=== PATIENT | female | born 1975 | race Caucasian/White ===

== ENCOUNTER 2023-12-13 08:30 | Outpatient (RCR) | payer MEDICAID, SELFPAY ==
[2023-11-18 13:25] VITALS: BP 193/101; PULSE 70; RESP 18; TEMP 36.6
--- NOTE | 2023-11-18 15:22 | HP.PCM_ITS ---
History of Present Illness Date of Service: 11/18/23 Chief Complaint: Lower extremity edema, lipodermatosclerosis History of Wound: Gibran Ronquillo is a very pleasant 48 y/o female who presents today for evaluation and management of lower extremity edema and chronic skin changes as referred from [facility]. She has had lower extremity edema for many years, worse in the RLE than the LLE. She does have Factor V Leiden for which she is chronically anticoagulated with Xarelto 20mg daily. Associated with this, she has had multiple prior DVTs. She has chronic aching pain/fatigue and persistent edema in her lower extremities. She has tried compression in the past but has had difficulty tolerating it. She does not have any wounds. She does have some chronic discoloration and skin hardening in the distal calf on the RLE. She is also obese with a BMI 61.3. She reports that she has been trying for a long time to lose weight through various methods with limited success to this point. She expresses frustration at this, which is understandable. She has unfortunately had bad experiences in the past in healthcare settings secondary to her weight and is typically very nervous in these settings as a result contributing to very elevated pressure today. She is asymptomatic in this regard otherwise. No other significant medical history. [facility] Home Medications rivaroxaban 20 mg tablet (Xarelto) 20 mg PO DAILY 11/18/23 [History Last Taken 11/18/23] Allergy/AdvReac Type Severity Reaction Status Date / Time amoxicillin Allergy Mild Rash Verified 11/18/23 14:48 Vital Signs Vital Signs Vital Signs: 11/18/23 13:25 Temperature 98 F Temperature Source Temporal Pulse Rate 70 Respiratory Rate 18 Blood Pressure 193/101 H Blood Pressure Mean 131 Blood Pressure Source Manual Blood Pressure Position Sitting Blood Pressure Location Right Arm Oxygen Delivery Method Room Air Physical Exam Const alert, oriented x3, no apparent distress and healthy appearing General Appearance: cooperative and comfortable Exam Limitations: no limitations HEENT normocephalic, head/scalp atraumatic, hearing grossly normal bilaterally, external ears normal and external nose normal Eyes EOMs intact bilaterally General Eye: normal appearance of both eyes Neck General: normal visual inspection and trachea midline Resp normal respiratory effort, normal air movement, no retractions and no use of accessory muscles Effort and Inspection: able to speak in complete sentences; Negative for labored, stridor or audible wheezes Cardio regular rate and regular rhythm Extremity Extremity Narrative: BLE worse R than L. There is lipodermatosclerosis noted at the R distal calf/ankle. Skin no wounds Neuro CN's II-XII intact bilaterally, moves all extremities, no focal motor deficits, no sensory deficits noted and gait normal Psych mental status grossly normal Appearance: grossly normal Attitude: calm and engaged Activity / Motor Behavior: appropriate eye contact Speech: normal speech Mood & Affect: euthymic mood Judgement: judgement good Debridement Note Debridement Note No debridement was completed: No debridement was completed today Post-Debridement Measurements and Additional Note: Post-Debridement Measurements/Treatment - Nurse 1 - General Ulcer Assessment Start: 11/18/23 13:10 Freq: Status: Active Protocol: MINA Activity Type Activity Date Activity User E-sign Co-sign Detail Recorded Client Recorded Date Recorded By Document 11/18/23 13:25 MS [place] 11/18/23 13:33 MS 11/18/23 13:25 - Today's Visit Information Type of service Initial Visit Arrival Mode Ambulatory Patient Identification Verified (Name & Yes ) Safety Precautions Fall Prevention Vital Signs Temperature (97.8 F-99.1 F) 98 F Temperature Source Temporal Pulse Rate (60-100) 70 Pulse Location Monitor Respiratory Rate (12-18) 18 Respiratory rate source Observation Oxygen Delivery Method Room Air Blood Pressure (90/60-120/80) 193/101 H Blood Pressure Mean 131 Source Manual Position Sitting Blood Pressure Location Right Arm History Since Last Visit- (Skip if this is Patient's initial visit) Has compression in place as prescribed N/A Has offloadiing in place as prescribed N/A Left Footwear Regular Shoe Right Footwear Regular Shoe Pain Scale: 0-10 Numeric Is Patient Pain Free? Yes - Nurse 1 - General Ulcer Measurement Start: 11/18/23 13:10 Freq: Status: Active Protocol: Activity Type Activity Date Activity User E-sign Co-sign Detail Recorded Client Recorded Date Recorded By Document 11/18/23 13:25 MS [place] 11/18/23 13:33 MS 11/18/23 13:25 Wound Center Nurse 1 #1 Right Lower Leg -Current Size (cm) - Length 0.1 -Current Size (cm) - Width 0.1 -Current Size (cm) - Depth 0.1 -Total Square Cm 0.01 -Date of Last Picture (Recall this 11/18/23 field) -Photo Taken Yes -Texture (Nina-wound Skin Appearance) Assessed -Moisture (Nina-wound Skin Appearance) Assessed -Color (Nina-wound Skin Appearance) Assessed, Hemosiderin Staining -Temperature (Nina-wound Skin No Abnormality Appearance) (Pt Warm) -Tenderness on Palpation (Nina-wound No Skin Appearance) Right Calf (cm) 64 Right Ankle (cm) 42 - Nurse 2 - General Ulcer CM Notes Start: 11/18/23 13:10 Freq: Status: Active Protocol: Activity Type Activity Date Activity User E-sign Co-sign Detail Recorded Client Recorded Date Recorded By Document 11/18/23 13:45 Desktop 11/18/23 14:11 11/18/23 13:45 Wound Center Nurse 2 #1 Right Lower Leg -Time 13:46 -Correct Patient Yes -Correct Side, Site, Position Yes -Wound Comment(s) no wounds but edema bilaterally Pain Scale: 0-10 Numeric Is Patient Pain Free? Yes - Nurse 3 - General Ulcer D/C NN Start: 11/18/23 13:10 Freq: Status: Active Protocol: Activity Type Activity Date Activity User E-sign Co-sign Detail Recorded Client Recorded Date Recorded By Document 11/18/23 14:24 MS Desktop 11/18/23 14:45 MS 11/18/23 14:24 Wound Care Center Nurse 3 Right -Multi-Layered Wrap Application Multi-Layer Comp - Right ($ ) Left -Multi-Layered Wrap Application Multi-Layer Comp - Left ($) Pain Scale: 0-10 Numeric Is Patient Pain Free? Yes - Visit Discharge Discharge Condition Stable Ambulatory Status Ambulatory Transportation Private Auto Medication Reconcilliation completed & No provided to patient/care provider Clinical Summary of Care Provided Yes Notes: right leg measurements 41, 63.5-calf, 31.5-ankle left measurements 41 61-calf 31 ankle Charges/Coding Visit Charges Office Visits / Consults: 97573 OV L4 Est 30min Assessment/Plan Assessment/Plan (1) Bilateral lower extremity edema: CODE(S): R60.0 - Localized edema (2) Lipodermatosclerosis: CODE(S): M79.3 - Panniculitis, unspecified (3) Factor V Leiden: CODE(S): D68.51 - Activated protein C resistance (4) History of DVT (deep vein thrombosis): CODE(S): Z86.718 - Personal history of other venous thrombosis and embolism PLAN: Plan Will plan to initiate consistent measured compression with 3M wraps this week as long as she is able to tolerate this with the goal of reducing edema as much as possible such that compression can be continued with compression stockings long- term. Additionally, we discussed other conservative measures to initiate including leg elevation at all times of rest, regular walking regimen and ankle flexion exercises throughout the day (especially during times of prolonged idle sitting/standing), avoidance of prolonged idle sitting and standing. Certainly want to further evaluate for potential component of chronic venous insufficiency, post-thrombotic syndrome, and/or central venous compression. Will obtain a venous reflux study. For best long-term management, she may benefit from pneumatic leg pumps. Will monitor progress with conservative measures as above. We did discuss how her weight may contribute to lower extremity edema and she is very aware and understanding of this. She does continue to work toward weight loss, but this has been a challenging process through which she has tried many different things. She is interested in pursuing a referral to a weight loss center such as through [facility] which can offer medical and nutrition support among other options. Will place a referral if needed. She will return in 1 week or sooner as needed.
--- NOTE | 2023-11-22 13:01 | VDLE_ITS ---
Reason For Study: BLE Wounds RIGHT LEFT CFV is compressible, spontaneous, phasic, CFV is compressible, spontaneous, phasic, competent and demonstrates normal competent, and demonstrates normal augmentation. augmentation. FV is compressible, spontaneous, phasic, FV is compressible, spontaneous, phasic, competent and demonstrates normal competent and demonstrates normal augmentation. augmentation. POP V is compressible, phasic, and POP V is compressible, spontaneous, phasic, INCOMPETENT for greater than 1.0 second. competent and demonstrates normal T/P Trunk is compressible. augmentation. PTV is compressible. T/P Trunk is compressible. RT PerV is compressible. PTV is compressible. SFJ is INCOMPETENT and measures 0.66 cm. LT PerV is compressible. GSV proximal thigh measures 0.71 x 0.72 cm. SFJ is INCOMPETENT and measures 0.79 cm. GSV at knee measures 0.82 x 0.70 cm. GSV proximal thigh measures 0.70 x 0.65 cm. GSV above knee is competent. GSV at knee measures 0.63 x 0.58 cm. GSV below knee is INCOMPETENT for greater GSV INCOMPETENT throughout for greater than than 0.5 seconds. 0.5 seconds. SSV proximal calf is INCOMPETENT for greater ASV mid calf is INCOMPETENT for greater than than 0.5 seconds and measures 0.41 x 0.42 cm. 0.5 seconds and measures 0.37 x 0.46 cm. Procedure SSV proximal calf is competent and measures Exam performed in department. 0.35 x 0.36 cm. This is a venous duplex using B-mode, color flow and spectral Doppler. The exam was diagnostic. The study was technically difficult. Patient was scanned in reverse Trendelenburg position during reflux assessment. VL/Venous Duplex US - Js Extrem Interpretation Summary Deep veins of the bilateral lower extremities are patent and compressible segme ntally. There is no evidence of bilateral lower extremity deep vein thrombosis. The bilateral great saphenous veins appear patent and compressible segmentally. Positive for reflux in the right popliteal vein, saphenofemoral junction, great saphenous vein below the knee, small saphenous vein. Positive for reflux in the left saphenofemoral junction, great saphenous vein t hroughout, accessory saphenous vein in calf. Ordering Physician: Katia Mcqueen Referring Physician: Katherine Carmona Performed By: Moses Goode RVT
[2023-11-22 14:04] VITALS: BP 187/107; PULSE 62; RESP 18; TEMP 35.9
[2023-11-25 13:22] VITALS: BP 192/75; PULSE 59; RESP 18; TEMP 35.8
--- NOTE | 2023-11-25 17:06 | PN.PCM_ITS ---
History of Present Illness Date of Service: 11/25/23 Chief Complaint: Lower extremity edema, lipodermatosclerosis History of Wound: Gibran Ronquillo is a very pleasant 48 y/o female who presents today for evaluation and management of lower extremity edema and chronic skin changes as referred from [facility]. She has had lower extremity edema for many years, worse in the RLE than the LLE. She does have Factor V Leiden for which she is chronically anticoagulated with Xarelto 20mg daily. Associated with this, she has had multiple prior DVTs. She has chronic aching pain/fatigue and persistent edema in her lower extremities. She has tried compression in the past but has had difficulty tolerating it. She does not have any wounds. She does have some chronic discoloration and skin hardening in the distal calf on the RLE. She is also obese with a BMI 61.3. She reports that she has been trying for a long time to lose weight through various methods with limited success to this point. She expresses frustration at this, which is understandable. She has unfortunately had bad experiences in the past in healthcare settings secondary to her weight and is typically very nervous in these settings as a result contributing to very elevated pressure today. She is asymptomatic in this regard otherwise. No other significant medical history. Subjective Subjective She did well with the compression wraps this week. She did notice that they started to bunch around the ankles towards the end. Edema is overall stable from last week. She did complete venous reflux study as ordered. No new concerns. Objective Data Objective Data Vital Signs: Vital Signs Temp Pulse Resp BP O2 Del Method 96.4 F L 59 L 18 192/75 H Room Air 11/25/23 13:22 11/25/23 13:22 11/25/23 13:22 11/25/23 13:22 11/25/23 13:22 Oxygen Delivery Method Room Air Charges/Coding Visit Charges Office Visits / Consults: [id number] OV L3 Est 20min Physical Exam Const alert, oriented x3, no apparent distress and healthy appearing General Appearance: cooperative and comfortable Exam Limitations: no limitations HEENT normocephalic, head/scalp atraumatic, hearing grossly normal bilaterally, external ears normal and external nose normal Eyes EOMs intact bilaterally General Eye: normal appearance of both eyes Neck General: normal visual inspection and trachea midline Resp normal respiratory effort, normal air movement, no retractions and no use of accessory muscles Effort and Inspection: able to speak in complete sentences; Negative for labored, stridor or audible wheezes Cardio regular rate and regular rhythm Extremity Extremity Narrative: BLE worse R than L. There is lipodermatosclerosis noted at the R distal calf/ankle. Skin no wounds Neuro CN's II-XII intact bilaterally, moves all extremities, no focal motor deficits, no sensory deficits noted and gait normal Psych mental status grossly normal Appearance: grossly normal Attitude: calm and engaged Activity / Motor Behavior: appropriate eye contact Speech: normal speech Mood & Affect: euthymic mood Judgement: judgement good Debridement Note Debridement Note No debridement was completed: No debridement was completed today Post-Debridement Measurements and Additional Note: Post-Debridement Measurements/Treatment - Nurse 1 - General Ulcer Assessment Start: 11/18/23 13:10 Freq: Status: Active Protocol: [email or web address] Activity Type Activity Date Activity User E-sign Co-sign Detail Recorded Client Recorded Date Recorded By Document 11/18/23 13:25 MT Desktop 11/18/23 13:33 MT Document 11/22/23 14:04 KW Desktop 11/22/23 14:08 KW Document 11/25/23 13:22 KW Desktop 11/25/23 13:27 KW 11/18/23 11/22/23 11/25/23 13:25 14:04 13:22 - Today's Visit Information Type of service Initial Visit Nurse-only Follow-up Visit Visit (Physician/TELEPHONIC NURSE CASE MANAGER ) Arrival Mode Ambulatory Ambulatory Patient Identification Verified (Name & Yes Yes Yes ) Safety Precautions Fall Prevention Vital Signs Temperature (97.8 F-99.1 F) 98 F 96.7 F L 96.4 F L Temperature Source Temporal Temporal Temporal Pulse Rate (60-100) 70 62 59 L Pulse Location Monitor Monitor Respiratory Rate (12-18) 18 18 18 Respiratory rate source Observation Observation Observation Oxygen Delivery Method Room Air Room Air Room Air Blood Pressure (90/60-120/80) 193/101 H 187/107 H 192/75 H Blood Pressure Mean (mm Hg) 131 133 114 Source Manual Monitor Monitor Position Sitting Semi-Fowlers Semi-Fowlers Blood Pressure Location Right Arm Left Arm Left Forearm History Since Last Visit- (Skip if this is Patient's initial visit) Have you changed medications since your No No last visit? Any new allergies or adverse reactions No No Had a fall/change in ADL's that may No No increase risk of falls Signs or symptoms of abuse and/or No No neglect since last visit Have you been in the hospital since your No No last visit? Has dressing in place as prescribed Yes Yes Has compression in place as prescribed N/A Yes Yes Has offloadiing in place as prescribed N/A N/A N/A Experienced any changes in pain level or No No management Left Footwear Regular Shoe Regular Shoe Regular Shoe Right Footwear Regular Shoe Regular Shoe Regular Shoe Pain Scale: 0-10 Numeric Is Patient Pain Free? Yes No Yes WC - Nurse 1 - General Ulcer Measurement Start: 11/18/23 13:10 Freq: Status: Active Protocol: Activity Type Activity Date Activity User E-sign Co-sign Detail Recorded Client Recorded Date Recorded By Document 11/18/23 13:25 MT Desktop 11/18/23 13:33 MT Document 11/22/23 14:04 KW Desktop 11/22/23 14:08 KW Document 11/25/23 13:22 KW Desktop 11/25/23 13:27 KW 11/18/23 11/22/23 11/25/23 13:25 14:04 13:22 Wound Center Nurse 1 #1 Right Lower Leg -Current Size (cm) - Length 0.1 -Current Size (cm) - Width 0.1 -Current Size (cm) - Depth 0.1 -Total Square Cm 0.01 -Date of Last Picture (Recall this 11/18/23 field) -Photo Taken Yes -Texture (Nina-wound Skin Appearance) Assessed -Moisture (Nina-wound Skin Appearance) Assessed -Color (Nina-wound Skin Appearance) Assessed, Hemosiderin Staining -Temperature (Nina-wound Skin No Abnormality Appearance) (Pt Warm) -Tenderness on Palpation (Nina-wound No Skin Appearance) Right Calf (cm) 64 61.5 69 Right Ankle (cm) 42 33.5 39 Point of Measurement (cm from the distal 59 point) Left Calf (cm) 59.5 Point of measurement (cm from the medial 37 instep) Left Ankle (cm) 32 WC - Nurse 2 - General Ulcer CM Notes Start: 11/18/23 13:10 Freq: Status: Active Protocol: Activity Type Activity Date Activity User E-sign Co-sign Detail Recorded Client Recorded Date Recorded By Document 11/18/23 13:45 GM Desktop 11/18/23 14:11 GM Document 11/25/23 13:37 GM Desktop 11/25/23 13:37 11/18/23 11/25/23 13:45 13:37 Wound Center Nurse 2 #1 Right Lower Leg -Time 13:46 -Correct Patient Yes -Correct Side, Site, Position Yes -Wound Comment(s) no wounds but edema bilaterally Pain Scale: 0-10 Numeric Is Patient Pain Free? Yes Yes WC - Nurse 3 - General Ulcer D/C NN Start: 11/18/23 13:10 Freq: Status: Active Protocol: Activity Type Activity Date Activity User E-sign Co-sign Detail Recorded Client Recorded Date Recorded By Document 11/18/23 14:24 MT Desktop 11/18/23 14:45 MT Document 11/22/23 14:08 KW Desktop 11/22/23 14:09 KW Document 11/25/23 14:21 BMF Desktop 11/25/23 14:22 BMF 11/18/23 11/22/23 11/25/23 14:24 14:08 14:21 Wound Care Center Nurse 3 #1 Right Lower Leg -Ulcer Cleansing Soap and Water BLE -Multi-Layered Wrap Application Multi-Layer Multi-Layer Comp - Bilat ($ Comp - Bilat ($ ) ) -Other applied per dl quality assurance supervisor trim Right -Multi-Layered Wrap Application Multi-Layer Comp - Right ($ ) Left -Multi-Layered Wrap Application Multi-Layer Comp - Left ($) Treatment Response Procedure Tolerated Well Pain Scale: 0-10 Numeric Is Patient Pain Free? Yes Yes Yes WC - Visit Discharge Discharge Condition Stable Stable Stable Ambulatory Status Ambulatory Ambulatory Ambulatory Transportation Private Auto Private Auto Private Auto Medication Reconcilliation completed & No No provided to patient/care provider Clinical Summary of Care Provided Yes Yes Notes: right leg measurements 41, 63.5-calf, 31.5-ankle left measurements 41 61-calf 31 ankle Assessment/Plan Assessment/Plan (1) Bilateral lower extremity edema: CODE(S): R60.0 - Localized edema (2) Lipodermatosclerosis: CODE(S): M79.3 - Panniculitis, unspecified (3) Factor V Leiden: CODE(S): D68.51 - Activated protein C resistance (4) History of DVT (deep vein thrombosis): CODE(S): Z86.718 - Personal history of other venous thrombosis and embolism PLAN: Plan Will continue 3M wraps for compression this week and will plan for her to have them changed detention through the week at a nurse visit to hopefully reduce the bunching. She will continue with leg elevation at all times of rest, regular walking regimen and ankle flexion exercises throughout the day (especially during times of prolonged idle sitting/standing), avoidance of prolonged idle sitting and standing. Venous reflux study revealed R popliteal vein incompetence, R SFJ/GSV/SSV incompetence, L SFJ/GSV/ASV incompetence. We discussed referral to vascular surgery, she would like to hold off for now. For best long-term management, she may benefit from pneumatic leg pumps. Will continue monitor progress with conservative measures as above and apply for pumps if these are ineffective. We did discuss how her weight may contribute to lower extremity edema and she is very aware and understanding of this. She does continue to work toward weight loss, but this has been a challenging process through which she has tried many different things. She is interested in pursuing a referral to a weight loss center such as through [facility] which can offer medical and nutrition support among other options. Will place a referral if needed. She will return in 1 week or sooner as needed.
[2023-12-02 13:11] VITALS: BP 193/85; PULSE 65; RESP 22; TEMP 36.4
--- NOTE | 2023-12-02 14:04 | PN.PCM_ITS ---
History of Present Illness Date of Service: 12/02/23 Chief Complaint: Lower extremity edema, lipodermatosclerosis History of Wound: Gibran Ronquillo is a very pleasant 48 y/o female who presents today for evaluation and management of lower extremity edema and chronic skin changes as referred from [facility]. She has had lower extremity edema for many years, worse in the RLE than the LLE. She does have Factor V Leiden for which she is chronically anticoagulated with Xarelto 20mg daily. Associated with this, she has had multiple prior DVTs. She has chronic aching pain/fatigue and persistent edema in her lower extremities. She has tried compression in the past but has had difficulty tolerating it. She does not have any wounds. She does have some chronic discoloration and skin hardening in the distal calf on the RLE. She is also obese with a BMI 61.3. She reports that she has been trying for a long time to lose weight through various methods with limited success to this point. She expresses frustration at this, which is understandable. She has unfortunately had bad experiences in the past in healthcare settings secondary to her weight and is typically very nervous in these settings as a result contributing to very elevated pressure today. She is asymptomatic in this regard otherwise. No other significant medical history. Subjective Subjective She did have trouble with the wraps cutting in to her legs towards the end of the week. She did cancel the nurse visit because they were feeling okay on Wednesday at that time. Otherwise, no issues and no significant changes. Objective Data Objective Data Vital Signs: Vital Signs Temp Pulse Resp BP O2 Del Method 97.5 F L 65 22 H 193/85 H Room Air 12/02/23 13:11 12/02/23 13:11 12/02/23 13:11 12/02/23 13:11 11/25/23 13:22 Oxygen Delivery Method Room Air Charges/Coding Visit Charges Office Visits / Consults: [id number] OV L3 Est 20min Physical Exam Const alert, oriented x3, no apparent distress and healthy appearing General Appearance: cooperative and comfortable Exam Limitations: no limitations HEENT normocephalic, head/scalp atraumatic, hearing grossly normal bilaterally, external ears normal and external nose normal Eyes EOMs intact bilaterally General Eye: normal appearance of both eyes Neck General: normal visual inspection and trachea midline Resp normal respiratory effort, normal air movement, no retractions and no use of accessory muscles Effort and Inspection: able to speak in complete sentences; Negative for labored, stridor or audible wheezes Cardio regular rate and regular rhythm Extremity Extremity Narrative: BLE worse R than L. There is lipodermatosclerosis noted at the R distal calf/ankle. Skin no wounds Neuro CN's II-XII intact bilaterally, moves all extremities, no focal motor deficits, no sensory deficits noted and gait normal Psych mental status grossly normal Appearance: grossly normal Attitude: calm and engaged Activity / Motor Behavior: appropriate eye contact Speech: normal speech Mood & Affect: euthymic mood Judgement: judgement good Debridement Note Debridement Note No debridement was completed: No debridement was completed today Post-Debridement Measurements and Additional Note: Post-Debridement Measurements/Treatment WC - Nurse 1 - General Ulcer Assessment Start: 11/18/23 13:10 Freq: Status: Active Protocol: MINA Activity Type Activity Date Activity User E-sign Co-sign Detail Recorded Client Recorded Date Recorded By Document 11/18/23 13:25 MT Desktop 11/18/23 13:33 MT Document 11/22/23 14:04 KW Desktop 11/22/23 14:08 KW Document 11/25/23 13:22 KW Desktop 11/25/23 13:27 KW Document 12/02/23 13:11 DL Desktop 12/02/23 13:15 DL 11/18/23 11/22/23 11/25/23 13:25 14:04 13:22 - Today's Visit Information Type of service Initial Visit Nurse-only Follow-up Visit Visit (Physician/HOME THEATER INSTALLER ) Arrival Mode Ambulatory Ambulatory Transfer Assistance Patient Identification Verified (Name & Yes Yes Yes ) Patient Requires Transmission-Based Precautions Safety Precautions Fall Prevention Vital Signs Temperature (97.8 F-99.1 F) 98 F 96.7 F L 96.4 F L Temperature Source Temporal Temporal Temporal Pulse Rate (60-100) 70 62 59 L Pulse Location Monitor Monitor Respiratory Rate (12-18) 18 18 18 Respiratory rate source Observation Observation Observation Oxygen Delivery Method Room Air Room Air Room Air Blood Pressure (90/60-120/80) 193/101 H 187/107 H 192/75 H Blood Pressure Mean (mm Hg) 131 133 114 Source Manual Monitor Monitor Position Sitting Semi-Fowlers Semi-Fowlers Blood Pressure Location Right Arm Left Arm Left Forearm History Since Last Visit- (Skip if this is Patient's initial visit) Have you changed medications since your No No last visit? Any new allergies or adverse reactions No No Had a fall/change in ADL's that may No No increase risk of falls Signs or symptoms of abuse and/or No No neglect since last visit Have you been in the hospital since your No No last visit? Has dressing in place as prescribed Yes Yes Has compression in place as prescribed N/A Yes Yes Has offloadiing in place as prescribed N/A N/A N/A Experienced any changes in pain level or No No management Left Footwear Regular Shoe Regular Shoe Regular Shoe Right Footwear Regular Shoe Regular Shoe Regular Shoe Pain Scale: 0-10 Numeric Is Patient Pain Free? Yes No Yes 12/02/23 13:11 WC - Today's Visit Information Type of service Follow-up Visit (Physician/HOME THEATER INSTALLER ) Arrival Mode Ambulatory Transfer Assistance None Patient Identification Verified (Name & Yes ) Patient Requires Transmission-Based No Precautions Safety Precautions Vital Signs Temperature (97.8 F-99.1 F) 97.5 F L Temperature Source Temporal Pulse Rate (60-100) 65 Pulse Location Monitor Respiratory Rate (12-18) 22 H Respiratory rate source Observation Oxygen Delivery Method Blood Pressure (90/60-120/80) 193/85 H Blood Pressure Mean (mm Hg) 121 Source Monitor Position Blood Pressure Location History Since Last Visit- (Skip if this is Patient's initial visit) Have you changed medications since your No last visit? Any new allergies or adverse reactions No Had a fall/change in ADL's that may No increase risk of falls Signs or symptoms of abuse and/or No neglect since last visit Have you been in the hospital since your No last visit? Has dressing in place as prescribed No Has compression in place as prescribed No Has offloadiing in place as prescribed N/A Experienced any changes in pain level or No management Left Footwear Regular Shoe Right Footwear Regular Shoe Pain Scale: 0-10 Numeric Is Patient Pain Free? Yes - Nurse 1 - General Ulcer Measurement Start: 11/18/23 13:10 Freq: Status: Active Protocol: Activity Type Activity Date Activity User E-sign Co-sign Detail Recorded Client Recorded Date Recorded By Document 11/18/23 13:25 MT Desktop 11/18/23 13:33 MT Document 11/22/23 14:04 KW Desktop 11/22/23 14:08 KW Document 11/25/23 13:22 KW Desktop 11/25/23 13:27 KW Document 12/02/23 13:11 DL Desktop 12/02/23 13:15 DL 11/18/23 11/22/23 11/25/23 13:25 14:04 13:22 Wound Center Nurse 1 #1 Right Lower Leg -Current Size (cm) - Length 0.1 -Current Size (cm) - Width 0.1 -Current Size (cm) - Depth 0.1 -Total Square Cm 0.01 -Date of Last Picture (Recall this 11/18/23 field) -Photo Taken Yes -Texture (Nina-wound Skin Appearance) Assessed -Moisture (Nina-wound Skin Appearance) Assessed -Color (Nina-wound Skin Appearance) Assessed, Hemosiderin Staining -Temperature (Nina-wound Skin No Abnormality Appearance) (Pt Warm) -Tenderness on Palpation (Nina-wound No Skin Appearance) Right Calf (cm) 64 61.5 69 Right Ankle (cm) 42 33.5 39 Point of Measurement (cm from the distal 59 point) Left Calf (cm) 59.5 Point of measurement (cm from the medial 37 instep) Left Ankle (cm) 32 12/02/23 13:11 Wound Center Nurse 1 #1 Right Lower Leg -Current Size (cm) - Length -Current Size (cm) - Width -Current Size (cm) - Depth -Total Square Cm -Date of Last Picture (Recall this field) -Photo Taken -Texture (Nina-wound Skin Appearance) -Moisture (Nina-wound Skin Appearance) -Color (Nina-wound Skin Appearance) -Temperature (Nina-wound Skin Appearance) -Tenderness on Palpation (Nina-wound Skin Appearance) Right Calf (cm) 63 Right Ankle (cm) 38.5 Point of Measurement (cm from the distal point) Left Calf (cm) 61 Point of measurement (cm from the medial instep) Left Ankle (cm) 32.5 WC - Nurse 2 - General Ulcer CM Notes Start: 11/18/23 13:10 Freq: Status: Active Protocol: Activity Type Activity Date Activity User E-sign Co-sign Detail Recorded Client Recorded Date Recorded By Document 11/18/23 13:45 GM Desktop 04/04/24 14:11 GM Document 11/25/23 13:37 GM Desktop 11/25/23 13:37 Document 12/02/23 13:29 Desktop 12/02/23 13:29 GM 11/18/23 11/25/23 12/02/23 13:45 13:37 13:29 Wound Center Nurse 2 #1 Right Lower Leg -Time 13:46 -Correct Patient Yes -Correct Side, Site, Position Yes -Wound Comment(s) no wounds but edema bilaterally Pain Scale: 0-10 Numeric Is Patient Pain Free? Yes Yes Yes WC - Nurse 3 - General Ulcer D/C NN Start: 11/18/23 13:10 Freq: Status: Active Protocol: Activity Type Activity Date Activity User E-sign Co-sign Detail Recorded Client Recorded Date Recorded By Document 11/18/23 14:24 MT Desktop 11/18/23 14:45 MT Document 11/22/23 14:08 KW Desktop 11/22/23 14:09 KW Document 11/25/23 14:21 BM Desktop 11/25/23 14:22 BMF Document 12/02/23 13:54 [facility] Desktop 12/02/23 13:54 BMF 11/18/23 11/22/23 11/25/23 14:24 14:08 14:21 Wound Care Center Nurse 3 #1 Right Lower Leg -Ulcer Cleansing Soap and Water BLE -Multi-Layered Wrap Application Multi-Layer Multi-Layer Comp - Bilat ($ Comp - Bilat ($ ) ) -Other applied per dl open pit quarry supervisor Right -Multi-Layered Wrap Application Multi-Layer Comp - Right ($ ) Left -Multi-Layered Wrap Application Multi-Layer Comp - Left ($) Treatment Response Procedure Tolerated Well Pain Scale: 0-10 Numeric Is Patient Pain Free? Yes Yes Yes WC - Visit Discharge Discharge Condition Stable Stable Stable Ambulatory Status Ambulatory Ambulatory Ambulatory Transportation Private Auto Private Auto Private Auto Medication Reconcilliation completed & No No provided to patient/care provider Clinical Summary of Care Provided Yes Yes Notes: right leg measurements 41, 63.5-calf, 31.5-ankle left measurements 41 61-calf 31 ankle 12/02/23 13:54 Wound Care Center Nurse 3 #1 Right Lower Leg -Ulcer Cleansing BLE -Multi-Layered Wrap Application Multi-Layer Comp - Bilat ($ ) -Other applied per dl open pit quarry supervisor Right -Multi-Layered Wrap Application Left -Multi-Layered Wrap Application Treatment Response Procedure Tolerated Well Pain Scale: 0-10 Numeric Is Patient Pain Free? Yes WC - Visit Discharge Discharge Condition Stable Ambulatory Status Ambulatory Transportation Private Auto Medication Reconcilliation completed & provided to patient/care provider Clinical Summary of Care Provided Notes: Assessment/Plan Assessment/Plan (1) Bilateral lower extremity edema: CODE(S): R60.0 - Localized edema (2) Lipodermatosclerosis: CODE(S): M79.3 - Panniculitis, unspecified (3) Factor V Leiden: CODE(S): D68.51 - Activated protein C resistance (4) History of DVT (deep vein thrombosis): CODE(S): Z86.718 - Personal history of other venous thrombosis and embolism PLAN: Plan Will continue 3M wraps for compression this week and will plan for her to have them changed nursing home through the week at a nurse visit to hopefully reduce the bunching. She will continue with leg elevation at all times of rest, regular walking regimen and ankle flexion exercises throughout the day (especially during times of prolonged idle sitting/standing), avoidance of prolonged idle sitting and standing. Venous reflux study revealed R popliteal vein incompetence, R SFJ/GSV/SSV inco mpetence, L SFJ/GSV/ASV incompetence. We discussed referral to vascular surgery, she would like to hold off for now. For best long-term management, she may benefit from pneumatic leg pumps. Will continue monitor progress with conservative measures as above and apply for pumps if these are ineffective. She has seen small benefit with compression wraps so far. We did discuss how her weight may contribute to lower extremity edema and she is very aware and understanding of this. She does continue to work toward weight loss, but this has been a challenging process through which she has tried many different things. She is looking in to various weight loss clinics to see who accepts her insurance. She will return in 1 week or sooner as needed.
[2023-12-06 14:23] VITALS: BP 186/61; PULSE 73; RESP 20; TEMP 36
[2023-12-09 13:17] VITALS: BP 180/75; PULSE 68; RESP 18; TEMP 36.2
--- NOTE | 2023-12-09 16:20 | PCM.WC.PN ---
History of Present Illness Date of Service: 12/09/23 Chief Complaint: Lower extremity edema, lipodermatosclerosis History of Wound: Gibran Ronquillo is a very pleasant 48 y/o female who presents today for evaluation and management of lower extremity edema and chronic skin changes as referred from [facility]. She has had lower extremity edema for many years, worse in the RLE than the LLE. She does have Factor V Leiden for which she is chronically anticoagulated with Xarelto 20mg daily. Associated with this, she has had multiple prior DVTs. She has chronic aching pain/fatigue and persistent edema in her lower extremities. She has tried compression in the past but has had difficulty tolerating it. She does not have any wounds. She does have some chronic discoloration and skin hardening in the distal calf on the RLE. She is also obese with a BMI 61.3. She reports that she has been trying for a long time to lose weight through various methods with limited success to this point. She expresses frustration at this, which is understandable. She has unfortunately had bad experiences in the past in healthcare settings secondary to her weight and is typically very nervous in these settings as a result contributing to very elevated pressure today. She is asymptomatic in this regard otherwise. No other significant medical history. Subjective Subjective She has continued to wear the compression wraps as instructed. She has been participating in regular exercise including walking and frequent ankle flexion. She has been elevating her legs at times of rest. She continues to work toward weight loss and exploring options for assistance with this. She has not see significant improvement in her edema to this point. Objective Data Objective Data Vital Signs: Vital Signs Temp Pulse Resp BP O2 Del Method 97.1 F L 68 18 180/75 H Room Air 12/09/23 13:17 12/09/23 13:17 12/09/23 13:17 12/09/23 13:17 12/09/23 13:17 Oxygen Delivery Method Room Air Charges/Coding Visit Charges Office Visits / Consults: 54263 OV L3 Est 20min Physical Exam Const alert, oriented x3, no apparent distress and healthy appearing General Appearance: cooperative and comfortable Exam Limitations: no limitations HEENT normocephalic, head/scalp atraumatic, hearing grossly normal bilaterally, external ears normal and external nose normal Eyes EOMs intact bilaterally General Eye: normal appearance of both eyes Neck General: normal visual inspection and trachea midline Resp normal respiratory effort, normal air movement, no retractions and no use of accessory muscles Effort and Inspection: able to speak in complete sentences; Negative for labored, stridor or audible wheezes Cardio regular rate and regular rhythm Extremity Extremity Narrative: BLE worse R than L. There is lipodermatosclerosis noted at the R distal calf/ankle. Skin no wounds Neuro CN's II-XII intact bilaterally, moves all extremities, no focal motor deficits, no sensory deficits noted and gait normal Psych mental status grossly normal Appearance: grossly normal Attitude: calm and engaged Activity / Motor Behavior: appropriate eye contact Speech: normal speech Mood & Affect: euthymic mood Judgement: judgement good Debridement Note Debridement Note No debridement was completed: No debridement was completed today Post-Debridement Measurements and Additional Note: Post-Debridement Measurements/Treatment - Nurse 1 - General Ulcer Assessment Start: 11/18/23 13:10 Freq: Status: Active Protocol: MINA Activity Type Activity Date Activity User E-sign Co-sign Detail Recorded Client Recorded Date Recorded By Document 11/18/23 13:25 MT Desktop 11/18/23 13:33 MT Document 11/22/23 14:04 KW Desktop 11/22/23 14:08 KW Document 11/25/23 13:22 KW Desktop 11/25/23 13:27 KW Document 12/02/23 13:11 DL Desktop 12/02/23 13:15 DL Document 12/06/23 14:23 DL Laptop 12/06/23 14:26 DL Document 12/09/23 13:17 KW Desktop 12/09/23 13:20 KW 11/18/23 11/22/23 11/25/23 13:25 14:04 13:22 - Today's Visit Information Type of service Initial Visit Nurse-only Follow-up Visit Visit (Physician/DIRECTOR ELECTRICAL ENGINEERING ) Arrival Mode Ambulatory Ambulatory Transfer Assistance Patient Identification Verified (Name & Yes Yes Yes ) Patient Requires Transmission-Based Precautions Safety Precautions Fall Prevention Vital Signs Temperature (97.8 F-99.1 F) 98 F 96.7 F L 96.4 F L Temperature Source Temporal Temporal Temporal Pulse Rate (60-100) 70 62 59 L Pulse Location Monitor Monitor Respiratory Rate (12-18) 18 18 18 Respiratory rate source Observation Observation Observation Oxygen Delivery Method Room Air Room Air Room Air Blood Pressure (90/60-120/80) 193/101 H 187/107 H 192/75 H Blood Pressure Mean (mm Hg) 131 133 114 Source Manual Monitor Monitor Position Sitting Semi-Fowlers Semi-Fowlers Blood Pressure Location Right Arm Left Arm Left Forearm History Since Last Visit- (Skip if this is Patient's initial visit) Have you changed medications since your No No last visit? Any new allergies or adverse reactions No No Had a fall/change in ADL's that may No No increase risk of falls Signs or symptoms of abuse and/or No No neglect since last visit Have you been in the hospital since your No No last visit? Has dressing in place as prescribed Yes Yes Has compression in place as prescribed N/A Yes Yes Has offloadiing in place as prescribed N/A N/A N/A Experienced any changes in pain level or No No management Left Footwear Regular Shoe Regular Shoe Regular Shoe Right Footwear Regular Shoe Regular Shoe Regular Shoe Pain Scale: 0-10 Numeric Is Patient Pain Free? Yes No Yes 12/02/23 12/06/23 12/09/23 13:11 14:23 13:17 WC - Today's Visit Information Type of service Follow-up Visit Nurse-only Follow-up Visit (Physician/DIRECTOR ELECTRICAL ENGINEERING Visit (Physician/DIRECTOR ELECTRICAL ENGINEERING ) ) Arrival Mode Ambulatory Ambulatory Ambulatory Transfer Assistance None None Patient Identification Verified (Name & Yes Yes Yes ) Patient Requires Transmission-Based No No Precautions Safety Precautions Vital Signs Temperature (97.8 F-99.1 F) 97.5 F L 96.8 F L 97.1 F L Temperature Source Temporal Temporal Temporal Pulse Rate (60-100) 65 73 68 Pulse Location Monitor Monitor Monitor Respiratory Rate (12-18) 22 H 20 H 18 Respiratory rate source Observation Observation Observation Oxygen Delivery Method Room Air Blood Pressure (90/60-120/80) 193/85 H 186/61 H 180/75 H Blood Pressure Mean (mm Hg) 121 102 110 Source Monitor Monitor Monitor Position Semi-Fowlers Blood Pressure Location Left Forearm History Since Last Visit- (Skip if this is Patient's initial visit) Have you changed medications since your No No No last visit? Any new allergies or adverse reactions No No No Had a fall/change in ADL's that may No No No increase risk of falls Signs or symptoms of abuse and/or No No No neglect since last visit Have you been in the hospital since your No No No last visit? Has dressing in place as prescribed No Yes No Has compression in place as prescribed No Yes No Has offloadiing in place as prescribed N/A N/A N/A Experienced any changes in pain level or No No No management Left Footwear Regular Shoe Regular Shoe Right Footwear Regular Shoe Regular Shoe Pain Scale: 0-10 Numeric Is Patient Pain Free? Yes Yes Yes WC - Nurse 1 - General Ulcer Measurement Start: 11/18/23 13:10 Freq: Status: Active Protocol: Activity Type Activity Date Activity User E-sign Co-sign Detail Recorded Client Recorded Date Recorded By Document 11/18/23 13:25 MT Desktop 11/18/23 13:33 MT Document 11/22/23 14:04 KW Desktop 11/22/23 14:08 KW Document 11/25/23 13:22 KW Desktop 11/25/23 13:27 KW Document 12/02/23 13:11 DL Desktop 12/02/23 13:15 DL Document 12/06/23 14:23 DL Laptop 12/06/23 14:26 DL Document 12/09/23 13:17 KW Desktop 12/09/23 13:20 KW 11/18/23 11/22/23 11/25/23 13:25 14:04 13:22 Wound Center Nurse 1 #1 Right Lower Leg -Current Size (cm) - Length 0.1 -Current Size (cm) - Width 0.1 -Current Size (cm) - Depth 0.1 -Total Square Cm 0.01 -Date of Last Picture (Recall this 11/18/23 field) -Photo Taken Yes -Texture (Nina-wound Skin Appearance) Assessed -Moisture (Nina-wound Skin Appearance) Assessed -Color (Nina-wound Skin Appearance) Assessed, Hemosiderin Staining -Temperature (Nina-wound Skin No Abnormality Appearance) (Pt Warm) -Tenderness on Palpation (Nina-wound No Skin Appearance) Right Calf (cm) 64 61.5 69 Right Ankle (cm) 42 33.5 39 Point of Measurement (cm from the distal 59 point) Left Calf (cm) 59.5 Point of measurement (cm from the medial 37 instep) Left Ankle (cm) 32 12/02/23 12/06/23 12/09/23 13:11 14:23 13:17 Wound Center Nurse 1 #1 Right Lower Leg -Current Size (cm) - Length -Current Size (cm) - Width -Current Size (cm) - Depth -Total Square Cm -Date of Last Picture (Recall this field) -Photo Taken -Texture (Nina-wound Skin Appearance) -Moisture (Nina-wound Skin Appearance) -Color (Nina-wound Skin Appearance) -Temperature (Nina-wound Skin Appearance) -Tenderness on Palpation (Nina-wound Skin Appearance) Right Calf (cm) 63 61.5 62.5 Right Ankle (cm) 38.5 31.5 32.8 Point of Measurement (cm from the distal point) Left Calf (cm) 61 61 63.6 Point of measurement (cm from the medial instep) Left Ankle (cm) 32.5 31.6 33.5 WC - Nurse 2 - General Ulcer CM Notes Start: 11/18/23 13:10 Freq: Status: Active Protocol: Activity Type Activity Date Activity User E-sign Co-sign Detail Recorded Client Recorded Date Recorded By Document 11/18/23 13:45 GM Desktop 11/18/23 14:11 GM Document 11/25/23 13:37 GM Desktop 11/25/23 13:37 GM Document 12/02/23 13:29 GM Desktop 12/02/23 13:29 GM Document 12/09/23 13:42 GM Desktop 12/09/23 13:43 GM 11/18/23 11/25/23 12/02/23 13:45 13:37 13:29 Wound Center Nurse 2 #1 Right Lower Leg -Time 13:46 -Correct Patient Yes -Correct Side, Site, Position Yes -Wound Comment(s) no wounds but edema bilaterally Pain Scale: 0-10 Numeric Is Patient Pain Free? Yes Yes Yes 12/09/23 13:42 Wound Center Nurse 2 #1 Right Lower Leg -Time -Correct Patient -Correct Side, Site, Position -Wound Comment(s) Pain Scale: 0-10 Numeric Is Patient Pain Free? Yes WC - Nurse 3 - General Ulcer D/C NN Start: 11/18/23 13:10 Freq: Status: Active Protocol: Activity Type Activity Date Activity User E-sign Co-sign Detail Recorded Client Recorded Date Recorded By Document 11/18/23 14:24 MT Desktop 11/18/23 14:45 MT Document 11/22/23 14:08 KW Desktop 11/22/23 14:09 KW Document 11/25/23 14:21 BMF Desktop 11/25/23 14:22 BMF Document 12/02/23 13:54 BMF Desktop 12/02/23 13:54 BMF Document 12/06/23 14:23 DL Laptop 12/06/23 14:26 DL Document 12/09/23 14:04 DL Desktop 12/09/23 14:06 DL 11/18/23 11/22/23 11/25/23 14:24 14:08 14:21 Wound Care Center Nurse 3 #1 Right Lower Leg -Ulcer Cleansing Soap and Water BLE -Multi-Layered Wrap Application Multi-Layer Multi-Layer Comp - Bilat ($ Comp - Bilat ($ ) ) -Other applied per dl brick machine operator Right -Multi-Layered Wrap Application Multi-Layer Comp - Right ($ ) Left -Multi-Layered Wrap Application Multi-Layer Comp - Left ($) Treatment Response Procedure Tolerated Well Vital Signs Temperature (97.8 F-99.1 F) Temperature Source Pulse Rate (60-100) Pulse Location Respiratory Rate (12-18) Respiratory rate source Blood Pressure (90/60-120/80) Blood Pressure Mean (mm Hg) Source Pain Scale: 0-10 Numeric Is Patient Pain Free? Yes Yes Yes WC - Visit Discharge Discharge Condition Stable Stable Stable Ambulatory Status Ambulatory Ambulatory Ambulatory Transportation Private Auto Private Auto Private Auto Medication Reconcilliation completed & No No provided to patient/care provider Clinical Summary of Care Provided Yes Yes Notes: right leg measurements 41, 63.5-calf, 31.5-ankle left measurements 41 61-calf 31 ankle 12/02/23 12/06/23 12/09/23 13:54 14:23 14:04 Wound Care Center Nurse 3 #1 Right Lower Leg -Ulcer Cleansing BLE -Multi-Layered Wrap Application Multi-Layer Multi-Layer Multi-Layer Comp - Bilat ($ Comp - Bilat ($ Comp - Bilat ($ ) ) ) -Other applied per dl brick machine operator Right -Multi-Layered Wrap Application Left -Multi-Layered Wrap Application Treatment Response Procedure Procedure Procedure Tolerated Well Tolerated Well Tolerated Well Vital Signs Temperature (97.8 F-99.1 F) 96.8 F L Temperature Source Temporal Pulse Rate (60-100) 73 Pulse Location Monitor Respiratory Rate (12-18) 20 H Respiratory rate source Observation Blood Pressure (90/60-120/80) 186/61 H Blood Pressure Mean (mm Hg) 102 Source Monitor Pain Scale: 0-10 Numeric Is Patient Pain Free? Yes Yes Yes WC - Visit Discharge Discharge Condition Stable Stable Stable Ambulatory Status Ambulatory Ambulatory Ambulatory Transportation Private Auto Private Auto Private Auto Medication Reconcilliation completed & provided to patient/care provider Clinical Summary of Care Provided Notes: Assessment/Plan Assessment/Plan (1) Bilateral lower extremity edema: CODE(S): R60.0 - Localized edema (2) Lipodermatosclerosis: CODE(S): M79.3 - Panniculitis, unspecified (3) Factor V Leiden: CODE(S): D68.51 - Activated protein C resistance (4) History of DVT (deep vein thrombosis): CODE(S): Z86.718 - Personal history of other venous thrombosis and embolism (5) Lymphedema: CODE(S): I89.0 - Lymphedema, not elsewhere classified PLAN: Plan Will continue 3M wraps for compression this week and will plan for her to have them changed alf through the week at a nurse visit to hopefully reduce the bunching. She will continue with leg elevation at all times of rest, regular walking regimen and ankle flexion exercises throughout the day (especially during times of prolonged idle sitting/standing), avoidance of prolonged idle sitting and standing. Venous reflux study revealed R popliteal vein incompetence, R SFJ/GSV/SSV incompetence, L SFJ/GSV/ASV incompetence. We discussed referral to vascular surgery, she would like to hold off for now. She has stage 2 lymphedema with persistent lower extremity edema, hyperplasia, hyperpigmentation and associated discomfort/pain. Despite compliance with conservative therapy as noted above, she continues to have significant persistent symptoms. I do feel that she would benefit from lymphedema pumps in addition to continuation of conservative measures. [facility] She will return in 1 week or sooner as needed.
[2023-12-13 08:45] VITALS: BP 149/85; PULSE 76; RESP 18; TEMP 36.1
== END 2023-12-14 23:59 | disposition home or self-care (01) ==
LOC: WC 08:30
PROVIDERS: PCP Family Medicine; Referring Provider Physician Assistant; Visit Provider Physician Assistant
DX: R60.0 Localized edema (principal); Z68.44 Body mass index [BMI] 60.0-69.9, adult; G89.29 Other chronic pain; D68.51 Activated protein C resistance; M79.3 Panniculitis, unspecified; R53.83 Other fatigue; E66.9 Obesity, unspecified; Z79.01 Long term (current) use of anticoagulants; Z86.718 Personal history of other venous thrombosis and embolism
CPT/HCPCS: G0463; 29581; 93970; 99203; 99213

== ENCOUNTER 2024-01-06 13:15 | Outpatient (RCR) | payer MEDICAID, SELFPAY ==
[2023-12-15 00:07] VITALS: BP 149/85; PULSE 76; RESP 18; TEMP 36.1
[2023-12-16 13:12] VITALS: RESP 18; TEMP 35.9
--- NOTE | 2023-12-17 07:21 | PN.PCM_ITS ---
History of Present Illness Date of Service: 12/16/23 Chief Complaint: Lower extremity edema, lipodermatosclerosis History of Wound: Gibran Ronquillo is a very pleasant 48 y/o female who presents today for evaluation and management of lower extremity edema and chronic skin changes as referred from [facility]. She has had lower extremity edema for many years, worse in the RLE than the LLE. She does have Factor V Leiden for which she is chronically anticoagulated with Xarelto 20mg daily. Associated with this, she has had multiple prior DVTs. She has chronic aching pain/fatigue and persistent edema in her lower extremities. She has tried compression in the past but has had difficulty tolerating it. She does not have any wounds. She does have some chronic discoloration and skin hardening in the distal calf on the RLE. She is also obese with a BMI 61.3. She reports that she has been trying for a long time to lose weight through various methods with limited success to this point. She expresses frustration at this, which is understandable. She has unfortunately had bad experiences in the past in healthcare settings secondary to her weight and is typically very nervous in these settings as a result contributing to very elevated pressure today. She is asymptomatic in this regard otherwise. No other significant medical history. Subjective Subjective She continues to tolerate the 3M wraps and showed some improvement this week, but still with significant lower extremity edema. No skin breakdown/wounds. No acutely worsened swelling. She has also continued to elevate her legs and participate in regular exercise. Objective Data Objective Data Vital Signs: Vital Signs Temp Pulse Resp BP O2 Del Method 96.6 F L 76 18 149/85 H Room Air 12/16/23 13:12 12/15/23 00:07 12/16/23 13:12 12/15/23 00:07 12/16/23 13:12 Oxygen Delivery Method Room Air Charges/Coding Visit Charges Office Visits / Consults: 00560 OV L3 Est 20min Physical Exam Const alert, oriented x3, no apparent distress and healthy appearing General Appearance: cooperative and comfortable Exam Limitations: no limitations HEENT normocephalic, head/scalp atraumatic, hearing grossly normal bilaterally, external ears normal and external nose normal Eyes EOMs intact bilaterally General Eye: normal appearance of both eyes Neck General: normal visual inspection and trachea midline Resp normal respiratory effort, normal air movement, no retractions and no use of accessory muscles Effort and Inspection: able to speak in complete sentences; Negative for labored, stridor or audible wheezes Cardio regular rate and regular rhythm Extremity Extremity Narrative: BLE worse R than L. There is lipodermatosclerosis noted at the R distal calf/ankle. Skin no wounds Neuro CN's II-XII intact bilaterally, moves all extremities, no focal motor deficits, no sensory deficits noted and gait normal Psych mental status grossly normal Appearance: grossly normal Attitude: calm and engaged Activity / Motor Behavior: appropriate eye contact Speech: normal speech Mood & Affect: euthymic mood Judgement: judgement good Debridement Note Debridement Note No debridement was completed: No debridement was completed today Post-Debridement Measurements and Additional Note: Post-Debridement Measurements/Treatment WC - Nurse 1 - General Ulcer Assessment Start: 12/16/23 13:12 Freq: Status: Active Protocol: MINA Activity Type Activity Date Activity User E-sign Co-sign Detail Recorded Client Recorded Date Recorded By Document 12/16/23 13:12 KW Desktop 12/16/23 13:20 KW 12/16/23 13:12 - Today's Visit Information Type of service Follow-up Visit (Physician/ENVIRONMENTAL JOURNALIST ) Arrival Mode Ambulatory Patient Identification Verified (Name & Yes ) Vital Signs Temperature (97.8 F-99.1 F) 96.6 F L Temperature Source Temporal Pulse Location Monitor Respiratory Rate (12-18) 18 Respiratory rate source Observation Oxygen Delivery Method Room Air Source Monitor Position Sitting Blood Pressure Location Right Arm History Since Last Visit- (Skip if this is Patient's initial visit) Have you changed medications since your No last visit? Any new allergies or adverse reactions No Had a fall/change in ADL's that may No increase risk of falls Signs or symptoms of abuse and/or No neglect since last visit Have you been in the hospital since your No last visit? Has compression in place as prescribed N/A Has offloadiing in place as prescribed N/A Left Footwear Regular Shoe Right Footwear Regular Shoe Pain Scale: 0-10 Numeric Is Patient Pain Free? Yes BARRY - Nurse 3 - General Ulcer D/C NN Start: 12/16/23 13:12 Freq: Status: Active Protocol: Activity Type Activity Date Activity User E-sign Co-sign Detail Recorded Client Recorded Date Recorded By Document 12/16/23 13:49 Desktop 12/16/23 13:49 GM 12/16/23 13:49 Is Patient Pain Free? Yes Teaching: Wound Center Compression -Person Taught Patient -Teaching Method Discussion, Demonstration -Response to teaching Verbalize understanding WC - Visit Discharge Discharge Condition Stable Ambulatory Status Ambulatory Transportation Private Auto Medication Reconcilliation completed & No provided to patient/care provider Clinical Summary of Care Provided Yes Assessment/Plan Assessment/Plan (1) Bilateral lower extremity edema: CODE(S): R60.0 - Localized edema (2) Lipodermatosclerosis: CODE(S): M79.3 - Panniculitis, unspecified (3) Factor V Leiden: CODE(S): D68.51 - Activated protein C resistance (4) History of DVT (deep vein thrombosis): CODE(S): Z86.718 - Personal history of other venous thrombosis and embolism (5) Lymphedema: CODE(S): I89.0 - Lymphedema, not elsewhere classified PLAN: Plan Will continue 3M wraps for compression this week and will plan for her to have them changed skilled nursing through the week as this seems to work well for her. She will continue with leg elevation at all times of rest, regular walking regimen and ankle flexion exercises throughout the day (especially during times of prolonged idle sitting/standing), avoidance of prolonged idle sitting and standing. Venous reflux study revealed R popliteal vein incompetence, R SFJ/GSV/SSV incompetence, L SFJ/GSV/ASV incompetence. We discussed referral to vascular surgery, she would like to hold off for now. She has stage 2 lymphedema with persistent lower extremity edema, hyperplasia, hyperpigmentation and associated discomfort/pain. Despite compliance with conservative therapy as noted above, she continues to have significant persistent symptoms. She will return in 1 week or sooner as needed.
[2023-12-23 13:09] VITALS: BP 182/70; PULSE 63; RESP 18; TEMP 36.2
--- NOTE | 2023-12-23 18:04 | PCM.WC.PN ---
History of Present Illness Date of Service: 12/23/23 Chief Complaint: Lower extremity edema, lipodermatosclerosis History of Wound: Gibran Ronquillo is a very pleasant 48 y/o female who presents today for evaluation and management of lower extremity edema and chronic skin changes as referred from [facility]. She has had lower extremity edema for many years, worse in the RLE than the LLE. She does have Factor V Leiden for which she is chronically anticoagulated with Xarelto 20mg daily. Associated with this, she has had multiple prior DVTs. She has chronic aching pain/fatigue and persistent edema in her lower extremities. She has tried compression in the past but has had difficulty tolerating it. She does not have any wounds. She does have some chronic discoloration and skin hardening in the distal calf on the RLE. She is also obese with a BMI 61.3. She reports that she has been trying for a long time to lose weight through various methods with limited success to this point. She expresses frustration at this, which is understandable. She has unfortunately had bad experiences in the past in healthcare settings secondary to her weight and is typically very nervous in these settings as a result contributing to very elevated pressure today. She is asymptomatic in this regard otherwise. No other significant medical history. Subjective Subjective She utilized Circaids every day this week but no further significant progress has been made with her edema, still with significant lower extremity edema. No skin breakdown/wounds. No acutely worsened swelling. She has also continued to elevate her legs and participate in regular exercise. Objective Data Objective Data Vital Signs: Vital Signs Temp Pulse Resp BP O2 Del Method 97.1 F L 63 18 182/70 H Room Air 12/23/23 13:12/23/23 13:12/23/23 13:12/23/23 13:12/23/23 13:09 Oxygen Delivery Method Room Air Charges/Coding Visit Charges Office Visits / Consults: 13320 OV L3 Est 20min Physical Exam Const alert, oriented x3, no apparent distress and healthy appearing General Appearance: cooperative and comfortable Exam Limitations: no limitations HEENT normocephalic, head/scalp atraumatic, hearing grossly normal bilaterally, external ears normal and external nose normal Eyes EOMs intact bilaterally General Eye: normal appearance of both eyes Neck General: normal visual inspection and trachea midline Resp normal respiratory effort, normal air movement, no retractions and no use of accessory muscles Effort and Inspection: able to speak in complete sentences; Negative for labored, stridor or audible wheezes Cardio regular rate and regular rhythm Extremity Extremity Narrative: BLE worse R than L. There is lipodermatosclerosis noted at the R distal calf/ankle. Skin no wounds Neuro CN's II-XII intact bilaterally, moves all extremities, no focal motor deficits, no sensory deficits noted and gait normal Psych mental status grossly normal Appearance: grossly normal Attitude: calm and engaged Activity / Motor Behavior: appropriate eye contact Speech: normal speech Mood & Affect: euthymic mood Judgement: judgement good Debridement Note Debridement Note No debridement was completed: No debridement was completed today Post-Debridement Measurements and Additional Note: Post-Debridement Measurements/Treatment - Nurse 1 - General Ulcer Assessment Start: 12/16/23 13:12 Freq: Status: Active Protocol: MINA Activity Type Activity Date Activity User E-sign Co-sign Detail Recorded Client Recorded Date Recorded By Document 12/16/23 13:12 [employer] 12/16/23 13:20 [employer] Document 12/23/23 13:09 [employer] 12/23/23 13:15 KW 12/16/23 12/23/23 13:12 13:09 WC - Today's Visit Information Type of service Follow-up Visit Follow-up Visit (Physician/PET TRAINER (Physician/PET TRAINER ) ) Arrival Mode Ambulatory Ambulatory Patient Identification Verified (Name & Yes Yes ) Vital Signs Temperature (97.8 F-99.1 F) 96.6 F L 97.1 F L Temperature Source Temporal Temporal Pulse Rate (60-100) 63 Pulse Location Monitor Monitor Respiratory Rate (12-18) 18 18 Respiratory rate source Observation Observation Oxygen Delivery Method Room Air Room Air Blood Pressure (90/60-120/80) 182/70 H Blood Pressure Mean (mm Hg) 107 Source Monitor Monitor Position Sitting Semi-Fowlers Blood Pressure Location Right Arm Left Arm History Since Last Visit- (Skip if this is Patient's initial visit) Have you changed medications since your No No last visit? Any new allergies or adverse reactions No No Had a fall/change in ADL's that may No No increase risk of falls Signs or symptoms of abuse and/or No No neglect since last visit Have you been in the hospital since your No No last visit? Has compression in place as prescribed N/A Yes Has offloadiing in place as prescribed N/A N/A Experienced any changes in pain level or No management Left Footwear Regular Shoe Regular Shoe Right Footwear Regular Shoe Regular Shoe Pain Scale: 0-10 Numeric Is Patient Pain Free? Yes Yes - Nurse 3 - General Ulcer D/C NN Start: 12/16/23 13:12 Freq: Status: Active Protocol: Activity Type Activity Date Activity User E-sign Co-sign Detail Recorded Client Recorded Date Recorded By Document 12/16/23 13:49 GM Desktop 12/16/23 13:49 GM Document 12/23/23 13:45 DL Desktop 12/23/23 13:46 DL 12/16/23 12/23/23 13:49 13:45 Wound Care Center Nurse 3 Left -Stockings Yes -Other CircAid Right -Stockings Yes -Other CircAid Pain Scale: 0-10 Numeric Is Patient Pain Free? Yes Yes Teaching: Wound Center Compression -Person Taught Patient -Teaching Method Discussion, Demonstration -Response to teaching Verbalize understanding - Visit Discharge Discharge Condition Stable Stable Ambulatory Status Ambulatory Ambulatory Transportation Private Auto Private Auto Medication Reconcilliation completed & No provided to patient/care provider Clinical Summary of Care Provided Yes Assessment/Plan Assessment/Plan (1) Bilateral lower extremity edema: CODE(S): R60.0 - Localized edema (2) Lipodermatosclerosis: CODE(S): M79.3 - Panniculitis, unspecified (3) Factor V Leiden: CODE(S): D68.51 - Activated protein C resistance (4) History of DVT (deep vein thrombosis): CODE(S): Z86.718 - Personal history of other venous thrombosis and embolism (5) Lymphedema: CODE(S): I89.0 - Lymphedema, not elsewhere classified PLAN: Plan She now has Circaids to utilize for compression. She has done well with these this week though notes she is still getting the hang of apply them to the correct level of compression. They are tolerable and more comfortable for her than compression stockings she has used in the past. Will continue with Circaids for 20-40 mmHg compression. She will continue with leg elevation at all times of rest, regular walking regimen and ankle flexion exercises throughout the day (especially during times of prolonged idle sitting/standing), avoidance of prolonged idle sitting and standing. She has stage 2 lymphedema with persistent lower extremity edema, hyperplasia, hyperpigmentation and associated discomfort/pain. Despite compliance with conservative therapy as noted above, she continues to have significant persistent symptoms. Will apply for Lymphapress pumps to optimize long-term management of her lymphedema. Her BP was elevated during her visit today. It has been elevated in past visits as well. She is not on any anti-hypertensive therapy. She does not check her BPs at home. She was previously advised to contact her PCP regarding this and she did but her appt is not for 2 more weeks. She has also been advised to obtain a home BP cuff which she has not yet done. Today, I advised her to contact her PCP right away and inform them her BP was into the 180s today as they will likely wish to initiate therapy right away vs waiting for her appt. She is also encouraged to obtain BP cuff and start to keep a daily diary of pressure reading to take to her PCP appt in 2 weeks. If she is unable to get a hold of her PCP to address her BPs, she is instructed to contact our office. She is instructed to proceed to the ER if she develops any BRO, vision changes, CP, SOB, palpitations, or other concerning symptoms. She acknowledged understanding. She will return in 2 weeks or sooner as needed.
[2024-01-06 13:25] VITALS: BP 187/79; PULSE 64; RESP 18; TEMP 35.9
--- NOTE | 2024-01-06 16:48 | PCM.WC.PN ---
History of Present Illness Date of Service: 01/06/24 Chief Complaint: Lower extremity edema, lipodermatosclerosis History of Wound: Gibran Ronquillo is a very pleasant 48 y/o female who presents today for evaluation and management of lower extremity edema and chronic skin changes as referred from [facility]. She has had lower extremity edema for many years, worse in the RLE than the LLE. She does have Factor V Leiden for which she is chronically anticoagulated with Xarelto 20mg daily. Associated with this, she has had multiple prior DVTs. She has chronic aching pain/fatigue and persistent edema in her lower extremities. She has tried compression in the past but has had difficulty tolerating it. She does not have any wounds. She does have some chronic discoloration and skin hardening in the distal calf on the RLE. She is also obese with a BMI 61.3. She reports that she has been trying for a long time to lose weight through various methods with limited success to this point. She expresses frustration at this, which is understandable. She has unfortunately had bad experiences in the past in healthcare settings secondary to her weight and is typically very nervous in these settings as a result contributing to very elevated pressure today. She is asymptomatic in this regard otherwise. No other significant medical history. Subjective Subjective Patient returns to the wound center this week. She reports that unfortunately she has had some significant hardship arise in her personal life which has slightly derailed her focus on her own health management. She has not been able to apply the Circaids these last few weeks. She has received the lymphedema pumps but has not been able to arrange a time to learn how to use them so has not started these yet. She has not picked up a BP monitor so has not been monitoring this at home. She does have follow-up with her PCP tomorrow regarding her BPs. She denies any BRO, CP, SOB, N/V, vision changes. Objective Data Objective Data Vital Signs: Vital Signs Temp Pulse Resp BP O2 Del Method 96.7 F L 64 18 187/79 H Room Air 01/06/24 13:25 01/06/24 13:25 01/06/24 13:25 01/06/24 13:25 01/06/24 13:25 Oxygen Delivery Method Room Air Charges/Coding Visit Charges Office Visits / Consults: 87923 OV L2 Est 10min Physical Exam Const alert, oriented x3, no apparent distress and healthy appearing General Appearance: cooperative and comfortable Exam Limitations: no limitations HEENT normocephalic, head/scalp atraumatic, hearing grossly normal bilaterally, external ears normal and external nose normal Eyes EOMs intact bilaterally General Eye: normal appearance of both eyes Neck General: normal visual inspection and trachea midline Resp normal respiratory effort, normal air movement, no retractions and no use of accessory muscles Effort and Inspection: able to speak in complete sentences; Negative for labored, stridor or audible wheezes Cardio regular rate and regular rhythm Extremity Extremity Narrative: BLE worse R than L. There is lipodermatosclerosis noted at the R distal calf/ankle. Skin no wounds Neuro CN's II-XII intact bilaterally, moves all extremities, no focal motor deficits, no sensory deficits noted and gait normal Psych mental status grossly normal Appearance: grossly normal Attitude: calm and engaged Activity / Motor Behavior: appropriate eye contact Speech: normal speech Mood & Affect: euthymic mood Judgement: judgement good Assessment/Plan Assessment/Plan (1) Bilateral lower extremity edema: CODE(S): R60.0 - Localized edema (2) Lipodermatosclerosis: CODE(S): M79.3 - Panniculitis, unspecified (3) Factor V Leiden: CODE(S): D68.51 - Activated protein C resistance (4) History of DVT (deep vein thrombosis): CODE(S): Z86.718 - Personal history of other venous thrombosis and embolism (5) Lymphedema: CODE(S): I89.0 - Lymphedema, not elsewhere classified PLAN: Plan She has both Circaids and Lymphedema pumps for ongoing management of her edema at home. She is advised to re-commit to utilizing these tools as soon as she is able. We again discussed her underlying venous insufficiency. Should she ever wish to consider any procedural intervention, she is advised to contact the vascular office. Regarding her BP, she does have f/u with PCP tomorrow. She is again advised to proceed to the ER should she develop any BRO, vision changes, CP, SOB or other concerning symptoms. She is discharged from the wound center at this time. She will return as needed.
== END 2024-01-06 16:03 | disposition home or self-care (01) ==
LOC: WC 13:15
PROVIDERS: PCP Family Medicine; Referring Provider Physician Assistant; Visit Provider Physician Assistant
DX: R60.0 Localized edema (principal); D68.2 Hereditary deficiency of other clotting factors; Z68.44 Body mass index [BMI] 60.0-69.9, adult; R53.83 Other fatigue; I89.0 Lymphedema, not elsewhere classified; G89.29 Other chronic pain; D68.51 Activated protein C resistance; M79.3 Panniculitis, unspecified; E66.9 Obesity, unspecified; Z79.01 Long term (current) use of anticoagulants; Z86.718 Personal history of other venous thrombosis and embolism
CPT/HCPCS: 99213; G0463